=== PATIENT | male | born 1955 | race Caucasian/White ===

== ENCOUNTER 2017-10-23 22:25 | Emergency (ER) | payer OTHER ==
[2017-10-23] MEDS ORDERED: NS 1,000 ML IV ONE (22:43)
--- NOTE | 2017-10-23 22:45 | EDPHY ---
H & P Time Seen by Provider: 10/23/17 22:35 HPI/ROS: Chief Complaint: Near-syncope HPI: 62-year-old male had a near syncopal episode this evening. Patient states that he was walking he became very lightheaded. He sat down and continue to be lightheaded and felt he might pass out but did not lose consciousness. Does state that this happened after he drank 3 beers over the course of several hours and just prior had smoked some marijuana. No chest pain or palpitations. He also states that has not drunk any other liquids today. No headache. No nausea or vomiting. His is at the side in nausea became very pale. No family history of coronary artery disease or sudden cardiac . ROS: 10 point Review of Systems is negative except as noted in the HPI Social History: No smoking, occasional alcohol, occasional marijuana Family History: non-contributory Physical Exam: Gen: Awake, Alert, No Distress HEENT: Nose: no rhinorrhea Eyes: PERRLA, EOMI Mouth: Dry mucosa Neck: Supple, no JVD Chest: nontender, lungs clear to auscultation Heart: S1, S2 normal, no murmur Abd: Soft, non-tender, no guarding Back: no CVA tenderness, no midline tenderness Ext: no edema, non-tender Skin: no rash Neuro: CN II-XII intact, Sensation grossly intact, Strength 5/5 in bilateral upper and lower extremities Constitutional: Initial Vital Signs Temperature (C) 36.6 C 10/23/17 22:32 Heart Rate 71 10/23/17 22:32 Respiratory Rate 18 10/23/17 22:32 Blood Pressure 98/69 L 10/23/17 22:32 O2 Sat (%) 94 10/23/17 22:32 O2 Delivery Mode Room Air O2 (L/minute) 96 Allergies/Adverse Reactions: peanut [Peanut] Allergy (Severe, Verified 06/12/09 23:18) Anaphylaxis Home Medications: Medication Instructions Recorded [employer] Meds 03/30/09 Medical Decision Making - Diagnostics EKG Interpretation: ECG time 05/27/2052, sinus rhythm with a rate of 65, normal axis, normal intervals, no acute ST or T-wave changes. Impression: Normal ECG. ED Course/Re-evaluation: 62-year-old male who is clinically dehydrated had a near syncopal event this evening. ECG is normal. Troponin is normal. 4 hr repeat troponin remained 0. Symptoms likely secondary to his dehydration and substance use. Will discharge with follow-up with primary care physician, return for any concerns. - Data Points Laboratory Results: Laboratory Results 10/23/17 22:40 10/23/17 22:40 10/24/17 10/23/17 10/23/17 01:13 22:53 22:40 WBC RBC Hgb Hct MCV MCH MCHC RDW Plt Count MPV Neut % (Auto) Lymph % (Auto) [place] % (Auto) Eos % (Auto) Baso % (Auto) Nucleat RBC Rel Count Absolute Neuts (auto) Absolute Lymphs (auto) Absolute Monos (auto) Absolute Eos (auto) Absolute Basos (auto) Absolute Nucleated RBC Immature Gran % Seg Neutrophils % Band Neutrophils % Lymphocytes % Monocytes % Eosinophils % Basophils % Metamyelocytes % Myelocytes % Promyelocytes % Blast Cells % Immature Gran # Absolute Seg Neuts Absolute Band Neuts Absolute Lymphocytes Absolute Monocytes Absolute Eosinophils Absolute Basophils Absolute Metamyelocyte Absolute Myelocytes Absolute Promyelocytes Absolute Plasma Cells Nucleated RBCs Absolute Blast Cells Plasma Cells % Platelet Estimate Oval Macrocytes Smear Review By Sodium 135 mEq/L mEq/L (135-145) Potassium 3.9 mEq/L mEq/L (3.3-5.0) Chloride 102 mEq/L mEq/L (97-110) Carbon Dioxide 26 mEq/l mEq/l (22-31) Anion Gap 7 mEq/L L mEq/L (8-16) BUN 13 mg/dL mg/dL (7-23) Creatinine 1.2 mg/dL mg/dL (0.7-1.3) Estimated GFR > 60 Glucose 82 mg/dL mg/dL (70-100) Calcium 9.5 mg/dL mg/dL (8.5-10.4) POC Troponin I 0.00 ng/mL ng/mL 0.00 ng/mL ng/mL (0.00-0.08) (0.00-0.08) 10/23/17 22:40 WBC 11.36 10^3/uL H 10^3/uL (3.80-9.50) RBC 4.83 10^6/uL 10^6/uL (4.40-6.38) Hgb 15.5 g/dL g/dL (13.7-17.5) Hct 46.9 % % (40.0-51.0) MCV 97.1 fL fL (81.5-99.8) MCH 32.1 pg pg (27.9-34.1) MCHC 33.0 g/dL g/dL (32.4-36.7) RDW 13.1 % % (11.5-15.2) Plt Count 281 10^3/uL 10^3/uL (150-400) MPV 9.3 fL fL (8.7-11.7) Neut % (Auto) Not Reported Lymph % (Auto) Not Reported [place] % (Auto) Not Reported Eos % (Auto) Not Reported Baso % (Auto) Not Reported Nucleat RBC Rel Count Not Reported Absolute Neuts (auto) Not Reported Absolute Lymphs (auto) Not Reported Absolute Monos (auto) Not Reported Absolute Eos (auto) Not Reported Absolute Basos (auto) Not Reported Absolute Nucleated RBC Not Reported Immature Gran % Not Reported Seg Neutrophils % 27.3 % % Band Neutrophils % 2.0 % % Lymphocytes % 58.6 % % Monocytes % 8.1 % % Eosinophils % 1.0 % % Basophils % 3.0 % % Metamyelocytes % 0 % % Myelocytes % 0 % % Promyelocytes % 0 % % Blast Cells % 0 % % Immature Gran # Not Reported Absolute Seg Neuts 3.10 10^/uL 10^/uL (1.70-6.50) Absolute Band Neuts 0.23 10^3/uL 10^3/uL (0.00-0.70) Absolute Lymphocytes 6.66 10^3/uL H 10^3/uL (1.00-3.00) Absolute Monocytes 0.92 10^3/uL H 10^3/uL (0.30-0.80) Absolute Eosinophils 0.11 10^3/uL 10^3/uL (0.03-0.40) Absolute Basophils 0.34 10^3/uL H 10^3/uL (0.02-0.10) Absolute Metamyelocyte 0.00 10^3/mL 10^3/mL (0.00-0.00) Absolute Myelocytes 0.00 10^3/mL 10^3/mL (0.00-0.00) Absolute Promyelocytes 0.00 10^3/uL 10^3/uL (0.00-0.00) Absolute Plasma Cells 0.00 10^3/uL 10^3/uL (0.00-0.00) Nucleated RBCs 0 /100 WBC /100 WBC (0-0) Absolute Blast Cells 0.00 10^3/uL 10^3/uL (0.00-0.00) Plasma Cells % 0 % % Platelet Estimate ADEQUATE (ADEQ) Oval Macrocytes 1+ H Smear Review By Pending Sodium Potassium Chloride Carbon Dioxide Anion Gap BUN Creatinine Estimated GFR Glucose Calcium POC Troponin I Medications Given: Discontinued Medications Sodium Chloride (Ns) 1,000 mls @ 0 mls/hr IV ONCE ONE; Wide Open PRN Reason: Protocol Stop: 10/23/17 22:44 Last Admin: 10/23/17 22:50 Dose: 1,000 mls Point of Care Test Results: Chemistry 10/24/17 10/23/17 01:13 22:53 POC Troponin I 0.00 ng/mL ng/mL 0.00 ng/mL ng/mL (0.00-0.08) (0.00-0.08) Departure - Departure Disposition: Home, Routine, Self-Care Clinical Impression: Dehydration, Near syncope Condition: Good Instructions: Dehydration (ED), Near Syncope (ED) Additional Instructions: Make sure to drink at least 8, 8 oz glasses of water a day. Follow up with your primary care physician in 2-3 days for further evaluation. Return to the emergency department for lightheadedness, fainting, chest pain, palpitations, or any other concerns. Referrals: Chelsi Skinner MD [Primary Care Provider] - As per Instructions
--- NOTE | 2017-10-23 22:55 | CPEKG ---
Heart Rate: 65 RR Interval: 923 P-R Interval: 188 QRSD Interval: 98 QT Interval: 396 QTC Interval: 412 P [place] Station: 72 QRS [place] Station: 76 T Wave [place] Station: 34 EKG Severity - NORMAL ECG - EKG Impression: SINUS RHYTHM Electronically Signed By: Escobar Acevedo 24-Oct-2017 06:03:39
[2017-10-23 23:09] LABS: PLATELET COUNT 281 10^3/uL (150-400)
[2017-10-24 01:11] VITALS: BP 117/76
== END 2017-10-24 01:42 | disposition home or self-care (01) ==
LOC: EDUNIT#
DX: R55 Syncope and collapse (principal); E86.9 Volume depletion, unspecified; E86.0 Dehydration; Z91.010 Allergy to peanuts
CPT/HCPCS: 84484-PO

== ENCOUNTER → 2018-03-29 | Outpatient (CLI) | payer OTHER | LOC: BMCIMAGING 10:11 | PROVIDERS: ATTEND Family Medicine | DX: R05 Cough (principal); R50.9 Fever, unspecified ==